=== PATIENT | female | born 1995 | race Caucasian/White ===

== ENCOUNTER → 2020-02-09 14:08 | Outpatient (CLI) | payer BC, SELFPAY ==
[2020-02-09 14:27] LABS: COVID19 -Nasal RAPID Negative (Negative)
== END ==
PROVIDERS: PCP Family Medicine; Visit Provider Physician Assistant
DX: Z20.828 Contact with and (suspected) exposure to other viral communicable diseases (principal)
CPT/HCPCS: 87635

== ENCOUNTER → 2020-03-12 09:54 | Outpatient (CLI) | payer BC, SELFPAY ==
--- NOTE | 2020-03-12 09:58 | DI.RAD.S_ITS ---
PROCEDURE: XR CHEST 2V INDICATIONS: SHORTNESS OF BREATH TECHNIQUE: 2 views of the chest were acquired. COMPARISON: None. FINDINGS: Surgical changes and devices: None. Lungs and pleura: Lungs are clear. No pleural effusions or pneumothorax. Mediastinum: Mediastinal contours are normal. Heart size is normal. Bones and chest wall: No suspicious bony abnormalities. Soft tissues appear unremarkable. IMPRESSION: No acute cardiopulmonary pathology. Dictated by: Ariel Cruz M.D. on 03/12/2020 at 10:27 Approved by: Ariel Cruz M.D. on 03/12/2020 at 10:27
== END ==
PROVIDERS: PCP Family Medicine; Referring Provider Family Medicine; Visit Provider Family Medicine
DX: R06.02 Shortness of breath (principal)
CPT/HCPCS: 71046